=== PATIENT | female | born 1955 | race Caucasian/White ===

== ENCOUNTER → 2016-05-04 | Outpatient (CLI) | payer BC ==
[~2016-05-04] MED LIST: ASPEC81 PEG; FLUO20CA35 PO; HYDR-5688 PO; LTR510 PO; NAPHDRO11 OPB; PROM25TA9 PO
--- NOTE | 2016-05-04 12:48 | MAMMOGRAPHY REPORT ---
BILATERAL DIGITAL SCREENING MAMMOGRAM WITH CAD: 05/04/2016 CLINICAL HISTORY: Routine screening. Patient has no complaints. TECHNIQUE: Current study was also evaluated with a Computer Aided Detection (CAD) system. Bilatera l CC and MLO views were obtained. COMPARISON: Comparison is made to exams dated: 03/17/2015 mammogram, 02/18/2014 mammogram, 12/11/2012 m ammogram, 09/20/2011 mammogram, and 08/01/2010 mammogram - [facility]. BREAST COMPOSITION: There are scattered areas of fibroglandular density in both breasts. FINDINGS: No suspicious masses, calcifications, or areas of architectural distortion are noted in e ither breast. There has been no significant interval change compared to prior exams. IMPRESSION: ACR BI-RADS CATEGORY 1: NEGATIVE There is no mammographic evidence of malignancy. A 1 year screening mammogram is recommended. The p atient will receive written notification of the results. Approximately 10% of breast cancers are not detected with mammography. A negative mammographic repor t should not delay biopsy if a clinically suggestive mass is present. Nessa Mclain M.D. /:05/04/2016 12:20:01 Dragline Mechanic: Sima DIAZ)(Nick), [facility] letter sent: Normal 1/2 BI-RADS Code: ACR BI-RADS Category 1: Negative
== END | disposition home or self-care (01) ==
LOC: C.MAMM 09:06
PROVIDERS: ATTEND Obstetrics & Gynecology
DX: Z12.31 Encounter for screening mammogram for malignant neoplasm of breast (principal)

== ENCOUNTER → 2017-02-27 | Outpatient (CLI) | payer OTHER ==
[~2017-02-27] MED LIST changes: +GADAVIST IV PRN; -HYDR-5688 PO; -PROM25TA9 PO
--- NOTE | 2017-02-27 08:55 | DIAGNOSTIC IMAGING REPORT ---
Brain MRI WITH AND WITHOUT CONTRAST HISTORY: Memory loss. FORGETFULNESS TECHNIQUE: Multiplanar multisequence MRI of the brain was performed both before and after the intravenous administration of contrast. COMPARISON STUDY: None. FINDINGS: There are no areas of restricted diffusion to suggest acute infarction. The midline structures are intact. Trace fluid is right sphenoid sinus. The mastoid air cells are clear. The ventricles and sulci are within normal limits for age. There is no mass, hematoma, midline shift. The major vascular flow-voids at the skull base are well maintained. Postcontrast sequences show no areas of abnormal enhancement. IMPRESSION: No acute intracranial abnormality. Trace fluid within the right sphenoid sinus. Electronically signed by: Ian Briseno M.D. 02/27/2017 8:54 AM Dictated Date/Time: 02/27/2017 8:41 AM
== END | disposition home or self-care (01) ==
LOC: C.MRIBC 07:39
PROVIDERS: ATTEND Physician Assistant Medical
DX: R41.3 Other amnesia (principal)

== ENCOUNTER → 2017-06-07 | Outpatient (CLI) | payer OTHER ==
[~2017-06-07] MED LIST changes: -ASPEC81 PEG; +ASPI-320 PEG; -GADAVIST IV PRN
--- NOTE | 2017-06-07 14:44 | MAMMOGRAPHY REPORT ---
BILATERAL DIGITAL SCREENING MAMMOGRAM TOMOSYNTHESIS WITH CAD: 06/07/2017 CLINICAL HISTORY: Routine screening. TECHNIQUE: Breast tomosynthesis in addition to standard 2D mammography was performed. Current study was also evaluated with a Computer Aided Detection (CAD) system. COMPARISON: Comparison is made to exams dated: 05/04/2016 mammogram, 03/17/2015 mammogram, 02/18/2014 rani mogram, 12/11/2012 mammogram, 09/13/2011 mammogram, and 08/01/2010 mammogram - [facility]. BREAST COMPOSITION: There are scattered areas of fibroglandular density in both breasts. FINDINGS: No suspicious masses, calcifications, or areas of architectural distortion are noted in ei ther breast. There has been no significant interval change compared to prior exams. Nodular asymmetr y in the left upper outer quadrant is stable compared to multiple prior exams. IMPRESSION: ACR BI-RADS CATEGORY 2: BENIGN There is no mammographic evidence of malignancy. A 1 year screening mammogram is recommended. The pa tient will receive written notification of the results. Approximately 10% of breast cancers are not detected with mammography. A negative mammographic report should not delay biopsy if a clinically suggestive mass is present. Nessa Mclain M.D. /:06/07/2017 12:21:45 Auto Dealer: Sudheer DIAZ)(M), [facility] letter sent: Normal 1/2 BI-RADS Code: ACR BI-RADS Category 2: Benign
== END | disposition home or self-care (01) ==
LOC: C.MAMM 09:51
PROVIDERS: ATTEND Obstetrics & Gynecology
DX: Z12.31 Encounter for screening mammogram for malignant neoplasm of breast (principal)

== ENCOUNTER 2022-09-17 04:18 | Observation (INO) ==
[2022-09-17] MEDS ORDERED: ONDANSETRON INJ 2 MG/ML 2 ML VIAL IV STA (04:47)
[2022-09-17] MEDS ORDERED: KETOROLAC 30 MG/ML VIAL IV ONE (04:47)
[2022-09-17] MEDS ORDERED: SODIUM CHLORIDE 0.9% 1000ML 1,000 ML IV ONE ×2 (04:47→05:19)
[2022-09-17] MEDS ORDERED: ACETAMINOPHEN 500 MG TAB PO STA (04:47)
[2022-09-17 05:03] LABS: Hematocrit (blood only) 38.6 % (37.0-47.0); Hemoglobin 12.9 g/dl (12.0-16.0); Mean Corpuscular Hemoglobin 29.5 pg (25.0-34.0); Mean Corpuscular Hgb Conc 33.4 g/dL (32.0-36.0); Mean Corpuscular Volume 88.3 fL (80.0-100.0); Mean Platelet Volume 9.8 fL (9.4-12.4); Platelet Count 290 K/uL (130-400); RDW Coefficient of Variation 12.9 % (11.5-14.5); RDW Standard Deviation 41.9 fL (36.4-46.3); Red Blood Count 4.37 M/uL (4.20-5.40); White Blood Count 16.85 K/ul (4.8-10.8)
--- NOTE | 2022-09-17 05:09 | Emergency Department Note ---
Impression & Plan Acute UTI, Sepsis Admit to the [facility]ist ED Provider Note NAME: JUSTINA CHAVEZ AGE: 66 SEX: F ARRIVES VIA: Walk-In INFORMANT: Patient ED PROVIDER(S): Raven Randall DO CHIEF COMPLAINT: Urinary incontinence and vomiting PLAN: Disposition: Admit to the [facility] Condition: Critical MEDICAL DECISION MAKING: This is a 66-year-old female patient presents to the emergency department with urinary symptoms for the past 1 week. She has been taking Azo [id number]. Around 245 this morning, the patient woke up with nausea, vomiting, shaking chills and urinary incontinence. A septic protocol was performed. Patient was treated with oral Tylenol, IV normal saline solution, IV Toradol and IV Zofran. Patient was noted to be uroseptic. She was treated with 2500 cc of crystalloid therapy. She was started on IV cefepime. The patient was noted to be hypokalem ic and was started on IV potassium replacement. I discussed the case with the [facility]ist and they will evaluate for further inpatient care. Triage Nursing notes reviewed and agree with them. Vital Signs: reviewed and remarkable for fever Differential diagnosis: Sepsis, UTI, dehydration, electrolyte abnormality ER treatment provided: Cardiac monitoring Twelve-lead EKG Oral Tylenol IV normal saline boluses IV Toradol IV Zofran IV potassium drip IV cefepime Diagnostics interpreted by me: ECG: Normal sinus rhythm at a rate of [address] segment elevation or signs of ischemia. Normal QTc. Cardiac Monitoring: Normal sinus rhythm at a rate of 89 Laboratory studies: See below Imaging studies: As per my independent interpretation Portable chest x-ray: No acute pulmonary infiltrates or opacities. HPI: 66/F arrives for evaluation of urinary incontinence and vomiting. Patient describes having urinary symptoms for the past 1 week for which she has been taking Azo. She awoke from sleep at 245 this morning with shaking chills, nausea and vomiting. She describes pressure symptoms in her bladder and a headache. PAST MEDICAL HISTORY:Hypertension, anxiety PAST SURGICAL HISTORY:See Below FAMILY HISTORY:See Below SOCIAL HISTORY:See Below HOME MEDICATIONS:See list ALLERGIES:See list VITALS:See Below PHYSICAL EXAMINATION: HEENT: Head - normocephalic and atraumatic. Pupils are equal, round, and reactive to light. Extraocular eye muscles are intact, and sclera are anicteric. Nose - moist nasal mucosa without discharge. Mouth - moist buccal mucosa. Oropharynx is nonerythematous and there is no tonsillar exudate or edema noted. Neck: Supple; no cervical lymphadenopathy Heart: Regular rate and rhythm. There is a normal S1 and S2 with no murmurs, clicks, or gallops appreciated. Lungs: Clear to auscultation bilaterally with no wheezes, rales, or rhonchi. Abdomen: Soft, completely nontender, nondistended, with good bowel sounds. There are no palpable pulsatile masses or hepatosplenomegaly. There is no guarding, rigidity, or rebound noted. Extremities: No evidence of cyanosis, clubbing, or edema. There are easily palpable peripheral pulses. Skin: Pale, warm and dry with good turgor and no rashes. ED COURSE: Times/Reassessments: 430 the patient was evaluated in room A-2. A septic protocol was performed. An order was placed for continuous cardiac monitoring. The patient was in a normal sinus rhythm at a rate of 89. A twelve-lead EKG was obtained. Patient was given oral dose of Tylenol. She was bolused with a liter of normal saline solution. Patient was given 30 mg of IV Toradol and 4 mg of IV Zofran. A urine specimen will be obtained. A portable chest x-ray was performed. She was given a second liter of normal saline solution. Patient's urine appears to be infected and she will be started on IV cefepime. Her potassium level was low and she was started on a K rider. I discussed the case with the [facility] Hospitalist and they will evaluate for further inpatient care. I have personally spent greater than 40 minutes of critical care time in the direct management of this patient. This includes bedside care, interpretation of diagnostic studies, and testing, discussion with consultants, patient, and family members, and other required patient management activities. This 40 minut es is in excess of all separately billable procedures. Raven Randall DO Past Med/Surg History Medical History Abnormal mammogram Anxiety Arthritis GERD (gastroesophageal reflux disease) History of kidney stones Hx of basal cell carcinoma Hyperlipidemia Hypertension IBS (irritable bowel syndrome) Surgical History History of ankle surgery History of appendectomy History of basal cell carcinoma (BCC) excision History of breast biopsy History of carpal tunnel release History of colonoscopy History of cystoscopy History of D&C History of endometrial ablation History of foot surgery History of left cataract extraction History of lithotripsy History of repair of rotator cuff History of tonsillectomy History of tooth extraction Family History Unknown Diabetes Bipolar disorder Heart disease Hyperlipidemia Cancer Hypertension Brother Bipolar disorder Family history of diabetes mellitus Mother Heart disease Other No family history of adverse response to anesthesia No family history of bleeding disorder Denies family history of Ovarian cancer Prostate cancer Myocardial infarction Breast cancer Colorectal cancer Stroke Social History Smoking Status: Never smoker Tobacco Type: Cigarettes Cigarettes Per Day: tried smoking in high school (infrequent); Second Hand Exposure: Yes (PARENTS SMOKED); Do You Dip or Chew Tobacco: No; Hx Alcohol Use: No Hx Substance Use: No Preferred Language: [place] Island[place] Communication Ability: Effective Visual Impairment: No Limitations Hearing Ability: Normal Hvac Service Manager Required: No Beliefs That Will Affect Care: None marital status: Current Living Situation: Alone current occupational status: retired current occupation: [employer] How many Children do You have: 2 Feels Safe at Home: Yes Childhood Exposure to Second-Hand Smoke: No caffeine: Yes Dental Care, Regularly: Yes Physical Activity Frequency: 3-4 Times per Week Seatbelt Use: always Sunscreen Use: Yes Assistive Devices: Contacts, Denture - Upper and Glasses Allergies Allergies Allergy/AdvReac Type Severity Reaction Status Date / Time oxycodone Allergy Intermediate Hives Verified 01/10/22 10:22 Sulfa (Sulfonamide Allergy Intermediate Hives Verified 01/10/22 10:22 Antibiotics) ketamine AdvReac Intermediate "WEIRD Verified 01/10/22 10:22 FEELING THAT I DIDN'T LIKE" tamsulosin AdvReac Mild Diarrhea Verified 01/10/22 10:22 Home Meds Previous Rx's Medication Instructions Recorded amlodipine 5 mg-benazepril 10 mg 1 cap PO QAM #90 caps 11/10/21 capsule (Lotrel) hydroxyzine HCl 25 mg tablet 25 mg PO HS PRN itching #30 tabs 01/10/22 fluoxetine 40 mg capsule 40 mg PO QAM #90 caps 03/07/22 benzonatate 200 mg capsule 200 mg PO TID PRN cough #30 caps 06/29/22 cefdinir 300 mg capsule 300 mg PO BID 7 days #14 caps 09/18/22 Results & Data (ED) Vital Signs Vital Signs - 24 hr 09/17/22 04:21 09/17/22 04:44 09/17/22 04:42 Temperature 36.9 C 38.3 C H Temperature Source Oral Skin Pulse Rate 100 H Pulse Rate [Finger] 89 87 Pulse Rhythm [Finger] Regular Regular Pulse Strength [Finger] Normal Normal Respiratory Rate 20 14 18 Respiratory Effort / Characteristics Non-Labored Non-Labored Spontaneous Respiratory Depth Normal Normal Respiratory Pattern Regular Blood Pressure 139/87 Blood Pressure [Right Arm] 138/86 138/66 Blood Pressure Mean 104 Blood Pressure Mean [Right Arm] 103 90 Pulse Oximetry 97 93 94 Oxygen Delivery Method Room Air Room Air Room Air Oxygen Flow Rate Sepsis Recent Fever Within 48 Hours No Sepsis New/Unexplained Change in Mental Status No Sepsis Action Taken by Nursing No Action Required 09/17/22 04:52 09/17/22 04:59 Temperature Temperature Source Pulse Rate Pulse Rate [Finger] Pulse Rhythm [Finger] Pulse Strength [Finger] Respiratory Rate Respiratory Effort / Characteristics Respiratory Depth Respiratory Pattern Blood Pressure Blood Pressure [Right Arm] Blood Pressure Mean Blood Pressure Mean [Right Arm] Pulse Oximetry 89 L 95 Oxygen Delivery Method Room Air Nasal Cannula Oxygen Flow Rate 2 Sepsis Recent Fever Within 48 Hours Sepsis New/Unexplained Change in Mental Status Sepsis Action Taken by Nursing Laboratory Data 09/17/22 04:45 09/17/22 04:45 Lab Results 09/17/22 09/17/22 09/17/22 Range/Units 04:45 04:45 04:45 WBC 16.85 H (4.8-10.8) K/ul RBC 4.37 (4.20-5.40) M/uL Hgb 12.9 (12.0-16.0) g/dl Hct 38.6 (37.0-47.0) % MCV 88.3 (80.0-100.0) fL MCH 29.5 (25.0-34.0) pg MCHC 33.4 (32.0-36.0) g/dL RDW Std Deviation 41.9 (36.4-46.3) fL RDW Coeff of Bhanu 12.9 (11.5-14.5) % Plt Count 290 (130-400) K/uL MPV 9.8 (9.4-12.4) fL Immature Gran % (Auto) 0.4 % Neut % (Auto) 94.0 % Lymph % (Auto) 3.4 % Mcculloch % (Auto) 1.8 % Eos % (Auto) 0.2 % Baso % (Auto) 0.2 % Neut # (Auto) 15.84 H (1.40-6.50) K/uL Lymph # (Auto) 0.57 L (1.2-3.4) K/uL Mcculloch # (Auto) 0.31 (0.11-0.59) K/uL Eos # (Auto) 0.03 (0-0.50) K/uL Baso # (Auto) 0.04 (0-0.2) K/uL Immature Gran # (Auto) 0.06 (0.01-0.20) K/uL Sodium 136 (136-145) mmol/L Potassium 2.8 L (3.5-5.1) mmol/L Chloride 104 (98-107) mmol/L Carbon Dioxide 23 (21-32) mmol/L Anion Gap 9 (3-11) BUN 16 (6-23) mg/dl Creatinine 0.84 (0.6-1.2) mg/dl Est Cr Clr Drug Dosing 63.9 ml/min Est GFR ( Amer) 83.4 ml/min Est GFR (Non-Af Amer) 71.9 ml/min BUN/Creatinine Ratio 19.0 (10-20) Glucose 110 H (70-99(Fasting)) mg/dl Lactate 2.7 H* (0.4-2.0) mmol/L Calcium 9.2 (8.6-10.3) mg/dl Magnesium 1.6 L (1.7-2.4) mg/dl Total Bilirubin 0.7 (0.2-1.0) mg/dl Direct Bilirubin 0.1 (0-0.2) mg/dl AST 23 (13-39) U/L ALT 20 (7-52) U/L Alkaline Phosphatase 109 H (34-104) U/L Troponin I High Sens 12.6 (0-14) pg/ml Total Protein 7.1 (6.0-8.3) gm/dl Albumin 4.1 (3.4-5.0) gm/dl Procalcitonin Enterobacterales (PCR) (NotDetected) E. coli (PCR) (NotDetected) mcr-1 Colistin Res Gene PCR (NotDetected) blaIMP Car res Gene PCR (NotDetected) KPC-Carbap Res Gene PCR (NotDetected) blaNDM Car Res Gene PCR (NotDetected) OXA-48 Carbapenem Resis Gene (PCR) (NotDetected) blaVIM Car Res Gene PCR (NotDetected) CTX-M Gene Resistance (PCR) (NotDetected) Bld Cult ID Panel PCR (NotDetected) 09/17/22 09/17/22 09/17/22 Range/Units 04:45 04:45 04:47 WBC (4.8-10.8) K/ul RBC (4.20-5.40) M/uL Hgb (12.0-16.0) g/dl Hct (37.0-47.0) % MCV (80.0-100.0) fL MCH (25.0-34.0) pg MCHC (32.0-36.0) g/dL RDW Std Deviation (36.4-46.3) fL RDW Coeff of Bhanu (11.5-14.5) % Plt Count (130-400) K/uL MPV (9.4-12.4) fL Immature Gran % (Auto) % Neut % (Auto) % Lymph % (Auto) % Mcculloch % (Auto) % Eos % (Auto) % Baso % (Auto) % Neut # (Auto) (1.40-6.50) K/uL Lymph # (Auto) (1.2-3.4) K/uL Mcculloch # (Auto) (0.11-0.59) K/uL Eos # (Auto) (0-0.50) K/uL Baso # (Auto) (0-0.2) K/uL Immature Gran # (Auto) (0.01-0.20) K/uL Sodium (136-145) mmol/L Potassium (3.5-5.1) mmol/L Chloride (98-107) mmol/L Carbon Dioxide (21-32) mmol/L Anion Gap (3-11) BUN (6-23) mg/dl Creatinine (0.6-1.2) mg/dl Est Cr Clr Drug Dosing ml/min Est GFR ( Amer) ml/min Est GFR (Non-Af Amer) ml/min BUN/Creatinine Ratio (10-20) Glucose (70-99(Fasting)) mg/dl Lactate (0.4-2.0) mmol/L Calcium (8.6-10.3) mg/dl Magnesium (1.7-2.4) mg/dl Total Bilirubin (0.2-1.0) mg/dl Direct Bilirubin (0-0.2) mg/dl AST (13-39) U/L ALT (7-52) U/L Alkaline Phosphatase (34-104) U/L Troponin I High Sens (0-14) pg/ml Total Protein (6.0-8.3) gm/dl Albumin (3.4-5.0) gm/dl Procalcitonin Cancelled 1.51 H Enterobacterales (PCR) DETECTED A (NotDetected) E. coli (PCR) DETECTED A (NotDetected) mcr-1 Colistin Res Gene PCR Not Detected (NotDetected) blaIMP Car res Gene PCR Not Detected (NotDetected) KPC-Carbap Res Gene PCR Not Detected (NotDetected) blaNDM Car Res Gene PCR Not Detected (NotDetected) OXA-48 Carbapenem Resis Gene (PCR) Not Detected (NotDetected) blaVIM Car Res Gene PCR Not Detected (NotDetected) CTX-M Gene Resistance (PCR) Not Detected (NotDetected) Bld Cult ID Panel PCR See PCR Comment (NotDetected) Administered Medications Discontinued Medications Acetaminophen (Acetaminophen 500 Mg Tab) 1,000 mg PO NOW STA Stop: 09/17/22 04:48 Last Admin: 09/17/22 04:57 Dose: 1,000 mg Documented By: SAB Acetaminophen (Acetaminophen 325 Mg Tab) 650 mg PO Q4H PRN PRN Reason: Pain or Fever Stop: 10/17/22 08:59 Last Admin: 09/17/22 17:06 Dose: 650 mg Documented By: MM Amlodipine Besylate (Amlodipine Besylate 5 Mg Tab) 5 mg PO [facility] Stop: 10/17/22 08:59 Last Admin: 09/18/22 08:38 Dose: 5 mg Documented By: Admin: 09/17/22 12:18 Dose: 5 mg Documented By: ELFEGO Enalapril Maleate (Enalapril Maleate 10 Mg Tab) 10 mg PO DAILY [facility] Stop: 10/17/22 08:59 Last Admin: 09/18/22 08:38 Dose: 10 mg Documented By: Admin: 09/17/22 12:18 Dose: 10 mg Documented By: ELFEGO Enoxaparin Sodium (Enoxaparin Inj 40 Mg/0.4 Ml Syr) 40 mg SQ Q24H [facility] Stop: 10/17/22 08:59 Last Admin: 09/18/22 08:40 Dose: Not Given Documented By: Admin: 09/17/22 12:19 Dose: Not Given Documented By: ELFEGO Fluoxetine HCl (Fluoxetine Hcl 20 Mg Cap) 40 mg PO [facility] Stop: 10/17/22 08:59 Last Admin: 09/18/22 08:38 Dose: 40 mg Documented By: Admin: 09/17/22 12:19 Dose: Not Given Documented By: ELFEGO Sodium Chloride (Nss 1000ml) 1,000 mls @ 999 mls/hr IV .Q1H1M ONE Stop: 09/17/22 05:47 Last Infusion: 09/17/22 06:03 Dose: 0 mls/hr Documented By: Admin: 09/17/22 04:56 Dose: 999 mls/hr Documented By: SUZETTE Sodium Chloride (Nss 1000ml) 1,000 mls @ 999 mls/hr IV .Q1H1M ONE Stop: 09/17/22 06:19 Last Infusion: 09/17/22 06:40 Dose: 0 mls/hr Documented By: Admin: 09/17/22 05:31 Dose: 999 mls/hr Documented By: SUZETTE Cefepime HCl (Maxipime) 2,000 mg in 20 mls @ 5 mls/min IV NOW STA; Protocol Stop: 09/17/22 05:28 Last Admin: 09/17/22 05:30 Dose: 5 mls/min Documented By: SUZETTE Potassium Chloride (K Maxime / Wtr) 10 meq in 100 mls @ 100 mls/hr IV Q1H [facility] Stop: 09/17/22 07:59 Last Infusion: 09/17/22 09:33 Dose: 0 mls/hr Documented By: Admin: 09/17/22 07:16 Dose: 100 mls/hr Documented By: Infusion: 09/17/22 07:15 Dose: 0 mls/hr Documented By: Admin: 09/17/22 05:56 Dose: 100 mls/hr Documented By: RHONDA Sodium Chloride (Nss) 500 mls @ 999 mls/hr IV .Q31M ONE Stop: 09/17/22 06:17 Last Infusion: 09/17/22 09:34 Dose: 0 mls/hr Documented By: Admin: 09/17/22 05:56 Dose: 999 mls/hr Documented By: RHONDA Magnesium Sulfate/Dextrose (Magnesium Sulfate / D5w) 1 gm in 100 mls @ 50 mls/hr IV ONE ONE Stop: 09/17/22 07:58 Last Infusion: 09/17/22 09:41 Dose: 0 mls/hr Documented By: Admin: 09/17/22 06:13 Dose: 50 mls/hr Documented By: RHONDA Ceftriaxone Sodium 2,000 mg/ (Dextrose) 70 mls @ 100 mls/hr IV Q24H MYKE; Protocol Stop: 09/27/22 16:59 Last Infusion: 09/17/22 17:52 Dose: 0 mls/hr Documented By: Admin: 09/17/22 16:56 Dose: 100 mls/hr Documented By: ELFEGO Ketorolac Tromethamine (Ketorolac 30 Mg/Ml Vial) 30 mg IV NOW ONE Stop: 09/17/22 04:48 Last Admin: 09/17/22 04:56 Dose: 30 mg Documented By: SUZETTE Ondansetron HCl (Ondansetron Inj 2 Mg/Ml 2 Ml Vial) 4 mg IV NOW STA Stop: 09/17/22 04:48 Last Admin: 09/17/22 04:56 Dose: 4 mg Documented By: SUZETTE Potassium Chloride (Potassium Chloride 10 Meq Tabcr) 50 meq PO NOW STA Stop: 09/17/22 06:24 Last Admin: 09/17/22 06:34 Dose: 50 meq Documented By: RHONDA Discharge Plan Visit Data Chief Complaint: Urinary Symptoms Stated Complaint: UTI ED Provider: Raven Randall Discharge Problem: Acute UTI, Sepsis Patient Disposition: Admitted As Inpatient Discharge Instructions Interventions: ED Discharge Assessment Last Done: 09/17/22 07:43
[2022-09-17 05:21] LABS: Albumin Level 4.1 gm/dl (3.4-5.0); Bilirubin Direct 0.1 mg/dl (0-0.2); Bilirubin,Total 0.7 mg/dl (0.2-1.0); Calcium 9.2 mg/dl (8.6-10.3); Creatinine Clr Calc Pharmacy 63.9 ml/min; Est GFR (African American) 83.4 ml/min; Est GFR (Non-African American) 71.9 ml/min; Magnesium 1.6 mg/dl (1.7-2.4); Potassium 2.8 mmol/L (3.5-5.1); Total Protein 7.1 gm/dl (6.0-8.3)
[2022-09-17] MEDS ORDERED: CEFEPIME 2,000 MG/20 ML VIAL IV STA (05:25)
[2022-09-17 05:27] LABS: Troponin I High Sensitivity 12.6 pg/ml (0-14)
[2022-09-17 05:33] LABS: Basophils # (auto) 0.04 K/uL (0-0.2); Basophils % (auto) 0.2 %; Eosinophils # (auto) 0.03 K/uL (0-0.50); Eosinophils % (auto) 0.2 %; Immature Granulocytes # (auto) 0.06 K/uL (0.01-0.20); Immature Granulocytes % (auto) 0.4 %; Lymphocytes # (auto) 0.57 K/uL (1.2-3.4); Lymphocytes % (auto) 3.4 %; Monocytes # (auto) 0.31 K/uL (0.11-0.59); Monocytes % (auto) 1.8 %; Neutrophils # (auto) 15.84 K/uL (1.40-6.50)
[2022-09-17] MEDS ORDERED: SODIUM CHLORIDE 0.9% 500 ML IV ONE (05:47)
[2022-09-17] MEDS: POTASSIUM CHLORIDE / WTR 10 MEQ/100 ML PLCT IV SCH ×2 (05:56→07:16)
[2022-09-17] MEDS ORDERED: MAGNESIUM SULFATE / D5W 1 GM/100 ML BAG IV ONE (05:59)
--- NOTE | 2022-09-17 06:01 | History & Physical Report ---
Date of Service September 17, 2022 Assessment & Plan (1) Sepsis: Plan: 66 yo female with PMHx of HTN and anxiety presents for UTI symptoms. #Sepsis -presented with 1 wk urinary symptoms and systemic symptoms starting this morning. Met 3/4 SIRS (tachy, fever, leukocytosis). Suspect urinary source although UA was not able to be obtained prior to abx initiation. CXR unremarkable per my read. Procal pending. Lactate 2.7, repeat pending. Blood cx pending. -Received 3L NSS in ED. -Started on cefepime in ED. Will switch to rocephin for now. Do not anticipate need for pseudomonal coverage. -ordered CT A/P given h/o kidney stones. -will retrieve UA when able. #Hypokalemia -K 2.8 on admission. Replenished. Repeat bmp in afternoon. #Hypomagnesemia -Mag 1.6 on admission. Replenished. Repeat bmp in afternoon. #HTN -cont. amlodipine-benazepril #Anxiety -cont. fluoxetine DVT ppx: lovenox FEN/GI: regular Code Status: full Dispo: med tele (2) Anxiety: History of Present Illness Chief Complaint: UTI symptoms Primary Care Provider: Bhavna Harrison PA-C 66 yo female with PMHx of HTN and anxiety presents for UTI symptoms. 1 wk ago started having suprapubic pressure and increased urinary frequency. Tried using Azo without resolve. Then today morning she woke up with a fever, chills, nausea, and vomiting. Mild associated headache. Denies chest pain, sob, abd pain, diarrhea, constipation, dysuria, hematuria. She does have a h/o kidney stones. Allergies Allergy/AdvReac Type Severity Reaction Status Date / Time oxycodone Allergy Intermediate Hives Verified 01/10/22 10:22 Sulfa (Sulfonamide Allergy Intermediate Hives Verified 01/10/22 10:22 Antibiotics) ketamine AdvReac Intermediate "WEIRD Verified 01/10/22 10:22 FEELING THAT I DIDN'T LIKE" tamsulosin AdvReac Mild Diarrhea Verified 01/10/22 10:22 Home Medications Medication Instructions Recorded Confirmed Type amlodipine 5 mg-benazepril 10 mg 1 cap PO QAM #90 caps 11/10/21 01/10/22 Rx capsule (Lotrel) hydroxyzine HCl 25 mg tablet 25 mg PO HS PRN itching #30 tabs 01/10/22 01/10/22 Rx fluoxetine 40 mg capsule 40 mg PO QAM #90 caps 03/07/22 Rx amoxicillin 875 mg-potassium 1 tab PO BID #14 tabs 06/29/22 06/29/22 Rx clavulanate 125 mg tablet benzonatate 200 mg capsule 200 mg PO TID PRN cough #30 caps 06/29/22 06/29/22 Rx Past Med/Surg History Medical History Abnormal mammogram Anxiety Arthritis GERD (gastroesophageal reflux disease) History of kidney stones Hx of basal cell carcinoma Hyperlipidemia Hypertension IBS (irritable bowel syndrome) Surgical History History of ankle surgery History of appendectomy History of basal cell carcinoma (BCC) excision History of breast biopsy History of carpal tunnel release History of colonoscopy History of cystoscopy History of D&C History of endometrial ablation History of foot surgery History of left cataract extraction History of lithotripsy History of repair of rotator cuff History of tonsillectomy History of tooth extraction Family History Unknown Diabetes Bipolar disorder Heart disease Hyperlipidemia Cancer Hypertension Brother Bipolar disorder Family history of diabetes mellitus Mother Heart disease Other No family history of adverse response to anesthesia No family history of bleeding disorder Denies family history of Ovarian cancer Prostate cancer Myocardial infarction Breast cancer Colorectal cancer Stroke Social History Smoking Status: Never smoker Tobacco Type: Cigarettes Cigarettes Per Day: tried smoking in high school (infrequent); Second Hand Exposure: Yes (PARENTS SMOKED); Do You Dip or Chew Tobacco: No; Hx Alcohol Use: No Hx Substance Use: No Preferred Language: Irish Communication Ability: Effective Visual Impairment: No Limitations Hearing Ability: Normal Transit Planning Manager Required: No Beliefs That Will Affect Care: None marital status: Current Living Situation: Alone current occupational status: retired current occupation: [employer] How many Children do You have: 2 Other Information That Helps Us Care for You: No Feels Safe at Home: Yes Safety Concerns: Feels Safe At This Time Childhood Exposure to Second-Hand Smoke: No caffeine: Yes Dental Care, Regularly: Yes Physical Activity Frequency: 3-4 Times per Week Seatbelt Use: always Sunscreen Use: Yes Assistive Devices: Contacts, Denture - Upper and Glasses Review of Systems Review of Systems: All systems reviewed & are unremarkable except as noted in HPI & below Physical Exam Physical Exam: Constitutional: in no acute distress, pleasant and normal affect, intact memory. AOx3. Vitals as above. HEENT: No scleral injection or discharge. Moist mucous membranes. Neck: Supple without lymphadenopathy or thyromegaly. Trachea midline. Lungs: Clear to auscultation bilaterally with good effort. No wheezes/rales/rhonchi. Cardiac: Regular rate and rhythm. No murmurs. No extremity edema. 2+ distal peripheral pulses. Abdomen: Bowel sounds present. Soft, nontender, and nondistended.No guarding. No hepatosplenomegaly. +suprapubic pressure. +tenderness bilateral flanks. +CVA tenderness bilaterally. MSK: No cyanosis or clubbing. Extremities motor strength 5/5. Skin: No abnormal rashes, warm, dry. Neurologic: no focal deficits Results & Data Results & Data Vital Signs (Past 12 Hours) Vital Signs Temp Pulse Pulse Resp BP BP Pulse Ox 09/17/22 04:47 86 09/17/22 05:06 80 18 128/83 97 09/17/22 05:05 81 20 128/83 96 09/17/22 04:59 95 09/17/22 04:52 89 L 09/17/22 04:42 87 18 138/66 94 09/17/22 04:44 38.3 C H 89 14 138/86 93 09/17/22 04:21 36.9 C 100 H 20 139/87 97 O2 Del Method O2 Flow Rate 09/17/22 04:47 09/17/22 05:06 Nasal Cannula 2 09/17/22 05:05 Nasal Cannula 2 09/17/22 04:59 Nasal Cannula 2 09/17/22 04:52 Room Air 09/17/22 04:42 Room Air 09/17/22 04:44 Room Air 09/17/22 04:21 Room Air Laboratory Results Laboratory Results WBC 16.85 K/ul (4.8-10.8) H 09/17/22 04:45 RBC 4.37 M/uL (4.20-5.40) 09/17/22 04:45 Hgb 12.9 g/dl (12.0-16.0) 09/17/22 04:45 Hct 38.6 % (37.0-47.0) 09/17/22 04:45 MCV 88.3 fL (80.0-100.0) 09/17/22 04:45 MCH 29.5 pg (25.0-34.0) 09/17/22 04:45 MCHC 33.4 g/dL (32.0-36.0) 09/17/22 04:45 RDW Std Deviation 41.9 fL (36.4-46.3) 09/17/22 04:45 RDW Coeff of Bhanu 12.9 % (11.5-14.5) 09/17/22 04:45 Plt Count 290 K/uL (130-400) 09/17/22 04:45 MPV 9.8 fL (9.4-12.4) 09/17/22 04:45 Immature Gran % (Auto) 0.4 % 09/17/22 04:45 Neut % (Auto) 94.0 % 09/17/22 04:45 Lymph % (Auto) 3.4 % 09/17/22 04:45 [place] % (Auto) 1.8 % 09/17/22 04:45 Eos % (Auto) 0.2 % 09/17/22 04:45 Baso % (Auto) 0.2 % 09/17/22 04:45 Neut # (Auto) 15.84 K/uL (1.40-6.50) H 09/17/22 04:45 Lymph # (Auto) 0.57 K/uL (1.2-3.4) L 09/17/22 04:45 [place] # (Auto) 0.31 K/uL (0.11-0.59) 09/17/22 04:45 Eos # (Auto) 0.03 K/uL (0-0.50) 09/17/22 04:45 Baso # (Auto) 0.04 K/uL (0-0.2) 09/17/22 04:45 Immature Gran # (Auto) 0.06 K/uL (0.01-0.20) 09/17/22 04:45 Sodium 136 mmol/L (136-145) 09/17/22 04:45 Potassium 2.8 mmol/L (3.5-5.1) L 09/17/22 04:45 Chloride 104 mmol/L (98-107) 09/17/22 04:45 Carbon Dioxide 23 mmol/L (21-32) 09/17/22 04:45 Anion Gap 9 (3-11) 09/17/22 04:45 BUN 16 mg/dl (6-23) 09/17/22 04:45 Creatinine 0.84 mg/dl (0.6-1.2) 09/17/22 04:45 Est Cr Clr Drug Dosing 63.9 ml/min 09/17/22 04:45 Est GFR ( Amer) 83.4 ml/min 09/17/22 04:45 Est GFR (Non-Af Amer) 71.9 ml/min 09/17/22 04:45 BUN/Creatinine Ratio 19.0 (10-20) 09/17/22 04:45 Glucose 110 mg/dl (70-99(Fasting)) H 09/17/22 04:45 Lactate 2.7 mmol/L (0.4-2.0) H* 09/17/22 04:45 Calcium 9.2 mg/dl (8.6-10.3) 09/17/22 04:45 Magnesium 1.6 mg/dl (1.7-2.4) L 09/17/22 04:45 Total Bilirubin 0.7 mg/dl (0.2-1.0) 09/17/22 04:45 Direct Bilirubin 0.1 mg/dl (0-0.2) 09/17/22 04:45 AST 23 U/L (13-39) 09/17/22 04:45 ALT 20 U/L (7-52) 09/17/22 04:45 Alkaline Phosphatase 109 U/L (34-104) H 09/17/22 04:45 Troponin I High Sens 12.6 pg/ml (0-14) 09/17/22 04:45 Total Protein 7.1 gm/dl (6.0-8.3) 09/17/22 04:45 Albumin 4.1 gm/dl (3.4-5.0) 09/17/22 04:45 Procalcitonin Cancelled 09/17/22 04:45 Supervising Physician Co-Signing Physician Notes Attending addendum: I have physically seen this patient, have supervised the medical residents activities, and agree with the H&P unless as otherwise noted. Assessment and Plan: Sepsis due to urinary tract infection- Status post 3 L normal saline in ED Follow urine culture sensitivity Received cefepime IV from the ED Admit on ceftriaxone [address] IV daily Order [address] scan abdomen pelvis due to history of kidney stones Electrolyte disturbances/hypokalemia/hypomagnesemia- Potassium 2.8, magnesium 1.6 Replete both, and repeat laboratories in a.m. Hypertension- Continue amlodipine-benazepril with hold parameters Anxiety- Continue fluoxetine Remaining orders and notations as noted Resident Activity Tracking Resident Involvement: Resident Care Provided Care Provided: Adult Hospital Medicine
[2022-09-17] MEDS ORDERED: POTASSIUM CHLORIDE 10 MEQ TABCR PO STA (06:23)
[2022-09-17 06:43] LABS: Appearance Urine Clear (Clear); Bacteria Urine Automated Negative (Negative); Bilirubin Urine Negative (Negative); Blood Urine Trace (Negative); Cast Urine Automated 0 /lpf (0-5); Color Urine Yellow; Epithelial Cell Urine Auto 0-5 /lpf (0-5); Glucose Urine UA Negative (Negative); Ketones Urine Negative (Negative); Leukocyte Esterase Urine 3+ (Negative); Nitrite Urine Positive (Negative); Protein Urine Trace (Negative); RBC Urine Automated 0-4 /hpf (0-4); Specific Gravity Urine 1.011 (1.000-1.030); Urobilinogen Urine Negative (Negative); WBC Urine Automated >30 /hpf (0-5)
--- NOTE | 2022-09-17 07:19 | Electrocardiogram Report ---
Test Reason : Blood Pressure : / mmHG Vent. Rate : 087 BPM Atrial Rate : 087 BPM P-R Int : 150 ms QRS Dur : 094 ms QT Int : 384 ms P-R-T Axes : 000 181 141 degrees QTc Int : 462 ms suspect limb lead reversal Normal sinus rhythm Right superior axis deviation Abnormal ECG When compared with ECG of 07-JUN-2022 14:09, Questionable change in QRS axis T wave inversion now evident in Lateral leads Confirmed by Tae Pablo ([id number]) on 09/17/2022 7:19:22 AM Referred By: REFERRED SELF Confirmed By:Hector Pablo
--- NOTE | 2022-09-17 07:40 | CT Scan Report ---
ABDOMEN AND PELVIS CT WITHOUT CONTRAST CT DOSE: 1059.41 mGy.cm HISTORY: Acute bilateral flank pain r/o stone TECHNIQUE: Multiaxial CT images of the abdomen and pelvis were performed without contrast. A dose lo wering technique was utilized adhering to the principles of ALARA. COMPARISON STUDY: 07/13/2020 FINDINGS: Mild subsegmental bibasilar atelectasis. No free air. Unremarkable spleen, pancreas and adr enal glands. Hepatic steatosis. No hepatic mass identified. Mild nonspecific bilateral perinephric st randing. No uroliths. Mild urothelial thickening of the ureters with mild dilation adjacent inflammat ory stranding. Moderate bladder wall thickening with perivesicular stranding. Uterus and adnexa are u nremarkable. Unremarkable aorta. Subcentimeter retroperitoneal lymph nodes with 10 mm precaval lymph node image 89 series 3, favored to be reactive. No bowel obstruction or bowel wall thickening. No CT evidence of acute appendicitis. Mild lumbar levo scoliosis. No acute fracture. IMPRESSION: 1. No renal or ureteral calculi. 2. Findings suggestive of cystitis with bilateral ascending infection. Correlate with urinalysis. 3. No bowel obstruction or bowel wall thickening. 4. Hepatic steatosis. ACT 112: Negative or not required by law. The above report was generated using voice recognition software. It may contain grammatical, syntax o r spelling errors. Electronically signed by: Vernon Barajas M.D. 09/17/2022 7:38 AM
--- NOTE | 2022-09-17 08:10 | XRay Report ---
XR chest 1V portable HISTORY: 66 years-old Female Sepsis acute sepsis COMPARISON: CT abdomen and pelvis of same day, chest radiograph 08/10/2020 TECHNIQUE: AP view of the chest FINDINGS: Cardiac silhouette is upper limits of normal in size. No pneumothorax, pleural effusion, airspace con solidation or pulmonary edema. Bones of the chest appear grossly intact. IMPRESSION: No acute process. ACT 112: Negative or not required by law. The above report was generated using voice recognition software. It may contain grammatical, syntax o r spelling errors. Electronically signed by: Vernon Barajas M.D. 09/17/2022 8:09 AM
[2022-09-17] MEDS ORDERED: POLYETHYLENE (MIRALAX) 17 GM PACK PO PRN (08:28)
[2022-09-17] MEDS ORDERED: ONDANSETRON 4 MG OD TAB PO PRN (08:28)
--- NOTE | 2022-09-17 08:55 | Hospitalist Progress Note ---
Date of Service September 17, 2022 Assessment & Plan (1) Sepsis: Plan: 66 yo female with PMHx of HTN and anxiety presents for UTI symptoms. #Sepsis urinary source -presented with 1 wk urinary symptoms and systemic symptoms starting this morning. Met 3/4 SIRS (tachy, fever, leukocytosis). Suspect urinary source although UA was not able to be obtained prior to abx initiation. CXR unremarkable per my read. Procal 1.5 . Lactate 2.7, repeat normal. Blood cx pending. -Received 3L NSS in ED. -Started on cefepime in ED. did switch to rocephin do not anticipate need for pseudomonal coverage. -ordered CT A/P suggest cystitis and pyelonephritis, no stones seen - #Hypokalemia -K 2.8 on admission. Replenished. Repeat bmp in afternoon. #Hypomagnesemia -Mag 1.6 on admission. Replenished. Repeat bmp in afternoon. #HTN -cont. amlodipine-benazepril #Anxiety -cont. fluoxetine DVT ppx: lovenox FEN/GI: regular Code Status: full Dispo: med tele (2) Anxiety: Admission and Anticipated Discharge Date Admission Date: September 17, 2022 Subjective Patient states that she attempted to treat herself as an outpatient with AZO. She then called her primary care office which gave her an appointment for Sunday however she decompensated Sunday and Sunday night presented with sepsis. Patient has cystitis with possible pyelonephritis no retained stones or hydronephrosis seen on imaging. She is markedly improved after volume resuscitation and institution of antibiotic therapy in the emergency department Physical Exam Physical Exam: Patient awake alert appropriate. Card exam is regular lungs are clear no CV angle tenderness at this time Results & Data Results & Data Vital Signs (Past 12 Hours) Vital Signs Temp Pulse Pulse Resp BP BP Pulse Ox 09/17/22 07:00 98.1 F 81 20 112/71 92 09/17/22 06:45 81 21 95 09/17/22 06:30 82 20 102/67 95 09/17/22 06:15 85 21 94 09/17/22 06:00 87 15 96 09/17/22 05:45 86 22 94 09/17/22 05:30 83 22 123/71 97 09/17/22 06:30 82 20 102/67 94 09/17/22 04:47 86 09/17/22 05:06 80 18 128/83 97 09/17/22 05:05 81 20 128/83 96 09/17/22 04:59 95 09/17/22 04:52 89 L 09/17/22 04:42 87 18 138/66 94 09/17/22 04:44 100.9 F H 89 14 138/86 93 09/17/22 04:21 98.5 F 100 H 20 139/87 97 O2 Del Method O2 Flow Rate 09/17/22 07:00 Room Air 09/17/22 06:45 09/17/22 06:30 Nasal Cannula 2 09/17/22 06:15 Nasal Cannula 2 09/17/22 06:00 Nasal Cannula 2 09/17/22 05:45 Nasal Cannula 2 09/17/22 05:30 Nasal Cannula 2 09/17/22 06:30 Nasal Cannula 2 09/17/22 04:47 09/17/22 05:06 Nasal Cannula 2 09/17/22 05:05 Nasal Cannula 2 09/17/22 04:59 Nasal Cannula 2 09/17/22 04:52 Room Air 09/17/22 04:42 Room Air 09/17/22 04:44 Room Air 09/17/22 04:21 Room Air PG Care Time/CCT Total # of Minutes Spent Total Time Spent with Patient: Total time spent is greater than 50% in coordination of care (as documented) at patient's floor/unit and/or counseling patient: Coding Level of Care Code None Diagnoses Sepsis A41.9 Anxiety F41.9
[2022-09-17] MEDS ORDERED: ACETAMINOPHEN 325 MG TAB PO PRN (09:00)
[2022-09-17] MEDS: ENALAPRIL MALEATE 10 MG TAB PO SCH (12:18)
[2022-09-17] MEDS: amLODIPine BESYLATE 5 MG TAB PO SCH (12:18)
[2022-09-17] MEDS: FLUoxetine HCL 20 MG CAP PO SCH (12:19)
[2022-09-17] MEDS: ENOXAPARIN INJ 40 MG/0.4 ML SYR SQ SCH (12:19)
[2022-09-17 14:41] LABS: BUN Creatinine Ratio 11.6 (10-20); Calcium 8.1 mg/dl (8.6-10.3); Creatinine Clr Calc Pharmacy 56.5 ml/min; Est GFR (African American) 71.8 ml/min
[2022-09-17 16:48] LABS: A calco-baum cmplx NotReported Not Detected (NotDetected); Bact fragilis Not Reported Not Detected (NotDetected); C auris Not Reported Not Detected (NotDetected); CTX-M Resistant Gene Not Detected (NotDetected); Calbicans Not Reported Not Detected (NotDetected); Candida glabrata Not Reported Not Detected (NotDetected); Candida krusei Not Reported Not Detected (NotDetected); Cneoformans/gatti Not Reported Not Detected (NotDetected); Cparapsilosis Not Reported Not Detected (NotDetected); Ctropicalis Not Reported Not Detected (NotDetected); E cloacae compx Not Reported Not Detected (NotDetected); Efaecalis Not Reported Not Detected (NotDetected); Efaecium Not Reported Not Detected (NotDetected); Enterobacterales Not Reported DETECTED (NotDetected); Escherichia coli Not Reported DETECTED (NotDetected); H influenzae Not Reported Not Detected (NotDetected); IMP Resistant Gene Not Detected (NotDetected); K aerogenes Not Reported Not Detected (NotDetected); KPC Resistant Gene Not Detected (NotDetected); Koxytoca Not Reported Not Detected (NotDetected); Kpneumoniae grp Not Reported Not Detected (NotDetected); Lmonocyt Not Reported Not Detected (NotDetected); N meningitidis Not Reported Not Detected (NotDetected); NDM Resistant Gene Not Detected (NotDetected); OXA 48 Like Resistant Gene Not Detected (NotDetected); P aeruginosa Not Reported Not Detected (NotDetected); Proteus spp Not Reported Not Detected (NotDetected); Salmonella spp Not Reported Not Detected (NotDetected); Smarcescens Not Reported Not Detected (NotDetected); Staph lugdunensis Not Reported Not Detected (NotDetected); Staph spp. Not Reported Not Detected (NotDetected); Staphaureus Not Reported Not Detected (NotDetected); Staphepi Not Reported Not Detected (NotDetected); Stenmaltophilia Not Reported Not Detected (NotDetected); Strep agal(GrpB) Not Reported Not Detected (NotDetected); Strep pneum Not Reported Not Detected (NotDetected); Strep pyog (GrpA) Not Reported Not Detected (NotDetected); Strep spp Not Reported Not Detected (NotDetected); VIM Resistant Gene Not Detected (NotDetected); mcr-1 Colistin Resistant Gene Not Detected (NotDetected)
[2022-09-17 16:55] LABS: Enterobacterales DETECTED (NotDetected)
[2022-09-17] MEDS ORDERED: cefTRIAXone SODIUM 2,000 MG in DEXTROSE 5% 50 ML IV SCH (17:00)
--- NOTE | 2022-09-17 22:04 | Billing Data ---
Date of Service September 17, 2022 Coding Level of Care Code 48973 INT INP/OBS CARE
[2022-09-18] MEDS: ENOXAPARIN INJ 40 MG/0.4 ML SYR SQ SCH ×2 (08:38→08:40)
[2022-09-18] MEDS: ENALAPRIL MALEATE 10 MG TAB PO SCH (08:38)
[2022-09-18] MEDS: amLODIPine BESYLATE 5 MG TAB PO SCH (08:38)
[2022-09-18] MEDS: FLUoxetine HCL 20 MG CAP PO SCH (08:38)
--- NOTE | 2022-09-18 17:01 | Discharge Summary ---
Date of Service September 18, 2022 Admission HPI Per Admitting Provider 66 yo female with PMHx of HTN and anxiety presents for UTI symptoms. 1 wk ago started having suprapubic pressure and increased urinary frequency. Tried using Azo without resolve. Then today morning she woke up with a fever, chills, nausea, and vomiting. Mild associated headache. Denies chest pain, sob, abd pain, diarrhea, constipation, dysuria, hematuria. She does have a h/o kidney stones. Principal Diagnosis Gram-negative bacteremia likely from urinary source Discharge Exam Awake alert appropriate no CV angle tenderness accompanied by her family Discharge Data Allergies Allergy/AdvReac Type Severity Reaction Status Date / Time oxycodone Allergy Intermediate Hives Verified 01/10/22 10:22 Sulfa (Sulfonamide Allergy Intermediate Hives Verified 01/10/22 10:22 Antibiotics) ketamine AdvReac Intermediate "WEIRD Verified 01/10/22 10:22 FEELING THAT I DIDN'T LIKE" tamsulosin AdvReac Mild Diarrhea Verified 01/10/22 10:22 Consultations 09/17/22 06:26 ED Decision to Admit Stat Ordered Studies 09/17/22 06:31 CT Abd and Pelvis [CT abd pelvis wo con] Routine Hospital Course (1) Sepsis: 66 yo female with PMHx of HTN and anxiety presents for UTI symptoms. #Sepsis -presented with 1 wk urinary symptoms and systemic symptoms starting this morning. Met 3/4 SIRS (tachy, fever, leukocytosis). Suspect urinary source although UA was not able to be obtained prior to abx initiation. CXR unremarkable per my read. Procal pending. Lactate 2.7, repeat pending. Blood cx pending. -Received 3L NSS in ED. -Started on cefepime in ED. received rocephin for 1 day patient wishes to go home we will have home on cefdinir therapy checking culture results of blood as she did have gram-negative's in blood urine was a contaminated specimen is sensitivities show alternatives we will phone alternative antibiotics for this patient -ordered CT A/P given h/o kidney stones. - #Hypokalemia/#Hypomagnesemia. Replenished. #HTN -cont. amlodipine-benazepril #Anxiety -cont. fluoxetine (2) Anxiety: Total Time Total Time Spent Total Time Spent (In Minutes): It required greater than 30 minutes to prepare this patient for discharge Discharge Plan Discharge Items Patient Disposition: Home - Self-Care Reason For Visit: UTI SYMPTOMS Discharge Diagnosis: sepsis pyelonephritis bacteremia Activity: Resume your previous activity Non-emergency contact: Primary Care Provider Call non-emergency contact if: your symptoms worsen Follow-up/Referrals: Bhavna Harrison PA-C [Primary Care Provider] - 09/21/22 11:00 am (Follow up with your PCP office on September 21, 11:00) Diet: Regular Addtl Attending Provider Instructions: plenty of liquids, rest follow up with your primary care provider by weeks end start taking antibiotics today, take two doses today Pending Studies at Discharge: Yes Studies:: final blood cultures Stand-Alone Forms: My [employer], Smoking Cessation Medications and DC Order Prescriptions: New cefdinir 300 mg capsule 300 mg PO BID 7 Days Qty: 14 0RF Continued amlodipine-benazepril [Lotrel] 5-10 mg capsule 1 cap PO QAM Qty: 90 3RF fluoxetine 40 mg capsule 40 mg PO QAM Qty: 90 3RF hydroxyzine HCl 25 mg tablet 25 mg PO HS PRN (Reason: itching) Qty: 30 2RF benzonatate 200 mg capsule 200 mg PO TID PRN (Reason: cough) Qty: 30 0RF Discontinued amoxicillin-pot clavulanate 875-125 mg tablet 1 tab PO BID Qty: 14 0RF Discharge Orders: Discharge Order (Routine); Ordered 09/18/22 Ordered By: Kevin Ricks Admission Data Admit Date/Time: 09/17/22 06:31 Attending Provider: Kevin Ricks Admit Provider: Robert Umaña Primary Care Provider: Bhavna Harrison Other Providers: Anthony Garcia Other Interventions: Discharge Summary Assessment (RN) Last Done: 09/18/22 12:04 Coding Level of Care Code 99193 INP/OBS DISCH >30 MIN Diagnoses Sepsis A41.9 Anxiety F41.9
== END 2022-09-18 12:26 | disposition home or self-care (01) ==
LOC: ED 04:18 → INTOOBSV 06:31 → SUATTDRO 06:31 → 2N 06:31